=== PATIENT | female | born 1955 | race Two or more races ===

== ENCOUNTER → 2017-04-17 06:24 | Outpatient (CLI) | payer OTHER ==
[~2017-04-17 06:24] MED LIST: COZAAR100 MG PO; GLIPIZIDE2.5 MG/BOT PO; ISOSORBIDE DINI30 MG PO; JANUVIA100 MG PO; KEFLEX500 MG PO; LASIX20 MG PO; LEVAQUIN750 MG PO; NASONEX17 GM NS; SEPTRA DS TABLE1 TAB PO; SYNTHROID88 MCG PO; TRAMADOL HCL-AP1 TAB PO; ULTRACET PO; VERAPAMIL ER240 MG PO
== END | disposition home or self-care (01) ==
LOC: LAB 06:24
DX: N20.0 Calculus of kidney (principal); R82.79 Other abnormal findings on microbiological examination of urine

== ENCOUNTER → 2017-06-02 | Outpatient (CLI) | payer OTHER | END | disposition home or self-care (01) | LOC: LAB 06:09 | DX: D50.0 Iron deficiency anemia secondary to blood loss (chronic) (principal); E11.65 Type 2 diabetes mellitus with hyperglycemia; Z12.11 Encounter for screening for malignant neoplasm of colon; K62.5 Hemorrhage of anus and rectum; R10.9 Unspecified abdominal pain; E78.00 Pure hypercholesterolemia, unspecified; E03.0 Congenital hypothyroidism with diffuse goiter; N39.0 Urinary tract infection, site not specified; E55.9 Vitamin D deficiency, unspecified; M81.0 Age-related osteoporosis without current pathological fracture; E11.29 Type 2 diabetes mellitus with other diabetic kidney complication ==

== ENCOUNTER 2017-07-10 10:49 | Outpatient (CLI) | payer OTHER | END 2017-07-10 12:22 | disposition home or self-care (01) | LOC: SONOGRAMA 10:49 → RAD 10:49 | DX: N20.0 Calculus of kidney (principal) ==

== ENCOUNTER → 2017-10-26 06:28 | Outpatient (CLI) | payer OTHER | END | disposition home or self-care (01) | LOC: LAB 06:28 | DX: N20.0 Calculus of kidney (principal) ==

== ENCOUNTER → 2018-04-10 07:23 | Outpatient (CLI) | payer OTHER | END | disposition home or self-care (01) | LOC: LAB 07:23 | DX: D50.0 Iron deficiency anemia secondary to blood loss (chronic) (principal); E11.69 Type 2 diabetes mellitus with other specified complication; E78.00 Pure hypercholesterolemia, unspecified; E03.0 Congenital hypothyroidism with diffuse goiter; N39.0 Urinary tract infection, site not specified; E55.9 Vitamin D deficiency, unspecified; M81.0 Age-related osteoporosis without current pathological fracture; Z12.11 Encounter for screening for malignant neoplasm of colon; K62.5 Hemorrhage of anus and rectum; R10.9 Unspecified abdominal pain; E11.29 Type 2 diabetes mellitus with other diabetic kidney complication ==

== ENCOUNTER 2018-04-10 08:13 | Outpatient (CLI) | payer OTHER | END 2018-04-10 08:26 | disposition home or self-care (01) | LOC: MAMO-SONO 08:13 | DX: Z12.31 Encounter for screening mammogram for malignant neoplasm of breast (principal); Z87.898 Personal history of other specified conditions; N60.01 Solitary cyst of right breast; N60.02 Solitary cyst of left breast; N63.10 Unspecified lump in the right breast, unspecified quadrant; N63.20 Unspecified lump in the left breast, unspecified quadrant ==

== ENCOUNTER → 2018-04-24 | Outpatient (CLI) | payer OTHER | END | disposition home or self-care (01) | LOC: RAD 501 10:43 | DX: M54.5 Low back pain (principal) ==

== ENCOUNTER 2018-07-26 07:37 | Outpatient (CLI) | payer OTHER | END 2018-07-26 17:00 | disposition home or self-care (01) | LOC: RAD 07:37 | DX: M25.512 Pain in left shoulder (principal); M54.6 Pain in thoracic spine ==

== ENCOUNTER 2018-08-23 10:00 | Outpatient (CLI) | payer OTHER | END 2018-08-23 10:05 | disposition home or self-care (01) | LOC: RAD 501 10:00 | DX: R07.89 Other chest pain (principal) ==

== ENCOUNTER 2018-12-17 11:40 | Outpatient (CLI) | payer OTHER | END 2018-12-17 11:51 | disposition home or self-care (01) | LOC: SONOGRAMA 11:40 | DX: E04.1 Nontoxic single thyroid nodule (principal) ==

== ENCOUNTER → 2019-04-04 | Outpatient (CLI) | payer OTHER | END | disposition home or self-care (01) | LOC: MAMO-SONO 11:44 | DX: Z12.31 Encounter for screening mammogram for malignant neoplasm of breast (principal); N63.10 Unspecified lump in the right breast, unspecified quadrant; N63.20 Unspecified lump in the left breast, unspecified quadrant; M25.512 Pain in left shoulder ==

== ENCOUNTER 2020-01-30 05:37 | Emergency (ER) | payer OTHER ==
[~2020-01-30] VITALS: Ht 157.5 cm; Wt 122.5 kg
== END 2020-01-30 19:58 | disposition home or self-care (01) ==
LOC: ER 05:37 → CPU-OBS 05:46 → ER 05:46
DX: I16.1 Hypertensive emergency (principal); I10 Essential (primary) hypertension; R07.89 Other chest pain; R06.02 Shortness of breath; Z03.818 Encounter for observation for suspected exposure to other biological agents ruled out

== ENCOUNTER 2021-10-12 05:50 | Day surgery (SDC) | payer OTHER ==
[~2021-10-12] VITALS: Ht 157.5 cm; Wt 89.8 kg
== END 2021-10-12 16:45 | disposition home or self-care (01) ==
LOC: CIR.AMB 05:50
PROVIDERS: ATTEND Orthopaedic Surgery Hand Surgery
DX: M13.842 Other specified arthritis, left hand (principal); G56.00 Carpal tunnel syndrome, unspecified upper limb; Z20.822 Contact with and (suspected) exposure to COVID-19; I11.0 Hypertensive heart disease with heart failure; I50.1 Left ventricular failure, unspecified; J45.909 Unspecified asthma, uncomplicated; J43.9 Emphysema, unspecified; F17.210 Nicotine dependence, cigarettes, uncomplicated; G47.33 Obstructive sleep apnea (adult) (pediatric); Z99.89 Dependence on other enabling machines and devices; E11.9 Type 2 diabetes mellitus without complications; E03.9 Hypothyroidism, unspecified; Z79.84 Long term (current) use of oral hypoglycemic drugs

== ENCOUNTER 2024-05-01 12:15 | Outpatient (CLI) | payer OTHER | END 2024-05-01 12:24 | disposition home or self-care (01) | LOC: TOM 12:15 | PROVIDERS: ATTEND Internal Medicine | DX: G30.0 Alzheimer's disease with early onset (principal) ==